=== PATIENT | male | born 1970 | race Two or more races ===

== ENCOUNTER 2024-10-10 18:24 | Inpatient (IN) | payer MEDICAID ==
[~2024-10-10] VITALS: Ht 149.9 cm; Wt 66.9 kg
--- NOTE | 2024-10-10 18:57 | ED.PDOC ---
History of Present Illness HPI Comments 53 y/o M, with a Hx of DM and partial right foot amputation, presents with c/o right foot swelling and redness, with mild discomfort, to distal right foot area for the past 4x days, today. Patient endorses on having a diabetic foot ulcer on the bottom of his right foot for the past 5x months and noticing onset of aforementioned symptoms for the past 4x days. Upon arrival to ED triage, patient was found with a blood glucose of 130. Patient reports no recent injuries in addition to having any numbness, tingling, weakness, fever, or other associated symptoms or modifiers at this time. Chief Complaint: Lower Extremity Time Seen by MD: 18:50 Primary Care Provider: OOA Reviewed Notes: Nurses Notes, Medications, Allergies Allergies: Coded Allergies: Penicillins (Verified Allergy, Unknown, 10/10/24) Information Source: Patient, [facility] Medical Record, Past Medical Record Mode of Arrival: Ambulatory Severity: Moderate Timing: Days Duration: Since onset Prehospital treatment: None Past Medical History PAST MEDICAL HISTORY: DM Surgical History (Other): Hx of partial right foot amputation Family History Family History: Unknown Social History Smoker: Non-Smoker Alcohol: Denies ETOH Use Drugs: Denies Drug Use Lives In: Home Constitutional: denies: chills, diaphoresis, fatigue, fever, malaise, sweats, weakness, others EENTM: denies: blurred vision, double vision, ear bleeding, ear discharge, ear drainage, ear pain, ear ringing, eye pain, eye redness, hearing loss, mouth pain, mouth swelling, nasal discharge, nose bleeding, nose congestion, nose pain, photophobia, tearing, throat pain, throat swelling, voice changes, others Respiratory: denies: cough, hemoptysis, orthopnea, SOB at rest, shortness of breath, SOB with excertion, stridor, wheezing, others Cardiovascular: denies: chest pain, dizzy spells, diaphoresis, Dyspnea on exertion, edema, irregular heart beat, left arm pain, lightheadedness, palpitations, PND, syncope, others Gastrointestinal: denies: abdomen distended, abdominal pain, blood streaked bowels, constipated, diarrhea, dysphagia, difficulty swallowing, hematemesis, melena, nausea, poor appetite, poor fluid intake, rectal bleeding, rectal pain, vomiting, others Genitourinary: denies: burning, dysuria, flank pain, frequency, hematuria, incontinence, penile discharge, penile sore, pain, testicle pain, testicle swelling, urgency, others Neurological: denies: dizziness, fainting, headache, left sided numbness, left sided weakness, numbness, paresthesia, pre-existing deficit, right sided numbne ss, right sided weakness, seizure, speech problems, tingling, tremors, weakness, others Musculoskeletal: reports: others (right foot swelling and redness, with mild discomfort, to distal right foot area); denies: back pain, gout, joint pain, joint swelling, muscle pain, muscle stiffness, neck pain Integumetry: reports: wounds (diabetic ulcer wound); denies: bruises, change in color, change in hair/nails, dryness, laceration, lesions, lumps, rash, others Allergic/Immunocompromised: denies: Difficulty Healing, Frequent Infections, Hives, Itching, others Hematologic/Lymphatic: denies: anemia, blood clots, easy bleeding, easy bruising, swollen glands, others Endocrine: denies: excessive hunger, excessive sweating, excessive thirst, excessive urination, flushing, intolerance to cold, intolerance to heat, unexplained weight gain, unexplained weight loss, others Psychiatric: denies: anxiety, bipolar disorder, depression, hopeless, panic disorder, schizophrenia, sleepless, suicidal, others All Other Systems: Reviewed and Negative Physical Exam General Appearance: Mild Distress, Normal HEENT: Normal ENT Inspection, Pharynx Normal, TMs Normal Neck: Full Range of Motion, Non-Tender, Normal, Normal Inspection Respiratory: Chest Non-Tender, Lungs Clear, No Accessory Muscle Use, No Respiratory Distress, Normal Breath Sounds Cardiovascular: No Edema, No JVD, No Murmur, No Gallop, Normal Peripheral Pulses, Regular Rate/Rhythm Breast Exam: Deferred Gastrointestinal: No Organomegaly, Non Tender, No Pulsatile Mass, Normal Bowel Sounds, Soft Genitalia: Deferred Pelvic: Deferred Rectal: Deferred Extremities: No calf tenderness, Normal range of motion, Swelling, Tender, Other (+ right foot diabetic ulcer, right distal foot severely swollen with erythema and induration) Musculoskeletal : Apperance: Normal Neurologic: Alert, pipeline engineer II-XII nml as Tested, No Motor Deficits, Normal Affect, Normal Mood, No Sensory Deficits Cerebellar Function: Normal Reflexes: Normal Skin: Dry, Normal Color, Other (+ right foot diabetic ulcer, right distal foot severely swollen with erythema and induration) Lymphatic: No Adenopathy Was a procedure done? Was a procedure done?: No Differential Dx Considerations may include: diabetic foot ulcer, cellulitis, dermatitis, osteomyelitis X-Ray, Labs, Meds, VS Vital Signs Date Time Temp Pulse Resp B/P (MAP) Pulse Ox O2 Delivery O2 Flow Rate FiO2 10/10/24 19:30 90 12 99 Room Air* 0 21 10/10/24 19:30 98.2 90 12 121/72 (88) 99 98.2 10/10/24 18:30 98.4 102 18 105/70 (82) 98 Lab Test 10/10/24 19:00 10/10/24 18:36 Range/Units White Blood Count 4.4 4.4-10.8 10^3/uL Red Blood Count 4.08 L 4.5-5.90 10^6/uL Hemoglobin 12.5 L 13.5-17.5 g/dL Hematocrit 37.8 L 41.0-53.0 % Mean Corpuscular Volume 92.6 80.0-100.0 fL Mean Corpuscular Hemoglobin 30.7 28.0-32.0 pg Mean Corpuscular Hemoglobin Concent 33.2 32.0-36.0 g/dL Red Cell Distribution Width 12.7 11.8-14.3 % Platelet Count 400 140-450 10^3/uL Mean Platelet Volume 6.6 L 6.9-10.8 fL Neutrophils (%) (Auto) 62.9 37.0-80.0 % Lymphocytes (%) (Auto) 24.4 10.0-50.0 % Monocytes (%) (Auto) 7.5 0.0-12.0 % Eosinophils (%) (Auto) 4.3 0.0-7.0 % Basophils (%) (Auto) 0.9 0.0-2.0 % Neutrophils # (Auto) 2.8 1.6-8.6 10 ^3/uL Lymphocytes # (Auto) 1.1 0.4-5.4 10 ^3/uL Monocytes # (Auto) 0.3 0-1.3 10 ^3/uL Eosinophils # (Auto) 0.2 0-0.8 10 ^3/uL Basophils # (Auto) 0 0-0.2 10 ^3/uL Nucleated Red Blood Cells 0.1 % Prothrombin Time 12.0 H 9.3-11.8 sec Prothrombin Time INR 1.14 0.9-1.15 Activated Partial Thromboplast Time 29.6 24.5-34.5 SEC Sodium Level 137 136-145 mmol/L Potassium Level 4.1 3.5-5.1 mmol/L Chloride Level 101 98-107 mmol/L Carbon Dioxide Level 31 20-31 mmol/L Anion Gap 5 5-15 Blood Urea Nitrogen 14 9-23 mg/dL Creatinine 0.86 0.700-1.30 mg/dL Glomerular Filtration Rate Calc 104 >90 mL/min BUN/Creatinine Ratio 16.3 10.0-20.0 Serum Glucose 140 H 74-106 mg/dL Lactic Acid Level 1.6 0.4-2.0 mmol/L Calcium Level 10.0 8.7-10.4 mg/dL Total Bilirubin 0.5 0.2-1.0 mg/dL Aspartate Amino Transferase (AST) 27 13-40 U/L Alanine Aminotransferase (ALT) 25 7-40 U/L Alkaline Phosphatase 265 H 46-116 U/L Total Protein 7.9 5.7-8.2 g/dL Albumin 4.0 3.2-4.8 g/dL POC Glucose 129 H 70-106 mg/dl Current Medications Medications (Trade) Dose Ordered Sig/Oliver Route Start Time Stop Time Status Last Admin Sodium Chloride 1,000 ml @ 1,000 mls/hr Q1H ONCE IVB 10/10/24 18:45 10/10/24 19:44 DC 10/10/24 19:32 Vancomycin HCl 200 ml @ 200 mls/hr ONCE ONCE IV 10/10/24 19:00 10/10/24 19:59 DC 10/10/24 19:[address] [address] Ph: [phone] DIAGNOSTIC IMAGING Diagnostic Imaging Report : [id number] Signed PATIENT: JERED GONZALEZ ACCT: [id number] UNIT: [id number] : 1970 LOC: ER ROOM / BED: / AGE / SEX: 53 / M ADM STATUS: REG ER SERVICE [id number] ORDERING PHYSICIAN: ALEXANDRE MURRAY MD PROCEDURE(s): RFOT2 - R FOOT 2 VIEW XRAY REASON: infection ORDER NUMBER(s): [id number], ACCESSION NUMBER(s): [id number] XY R FOOT 2 VIEW XRAY, INDICATION: infection TECHNICAL DATA: Frontal, oblique and lateral views were obtained of the right fo ot. COMPARISON: None Findings/ IMPRESSION: Comminuted fractures involving the base of the 2nd and 3rd proximal phalanges as well as the heads of the 2nd and 3rd metatarsals. There is severe soft tissue edema about these 2 digits. Status post amputation of the 4th digit. ATED BY: ALONZO BERNARDO DO DICTATED DATE/TIME: 10/10/241941 SIGNED BY: ALONZO BERNARDO DO SIGNED DATE/TIME: 10/10/241941 CC: Time of 1ST Reevaluation: 19:20 Reevaluation 1ST: Unchanged Time of 2ND Reevaluation: 19:37 Reevaluation 2ND: Unchanged Consultation: Other (hospitalist for admission, will need orthopedic consultation for possible amputation) Patient Education/Counseling: Diagnosis, Treatment Family Education/Counseling: No Family Present Departure 1 Departure Time of Disposition: 19:33 Impression: Primary Impression: Osteomyelitis of foot, acute Additional Impression: Cellulitis of right foot Disposition: ADMITTED INPATIENT Admit to: Med Surg Condition: Guarded Discharged With: Self Critical Care Note Critical Care Time?: Yes (35 min-critical care time only) Critical care comment: due to the real possibility of patient's condition deteriorating, his care requires my highest attention and readiness to intervene. i assessed the patient, ordered the proper tests and treatments, reassessed him for response, formulated a plan, discussed it with medical personnel, and consultants,. total time include more than 50% face to face contact and does not include any procedures Stability Stability form required: No Heart Score Heart Score: Heart Score Response (Comments) Value History N/A 0 EKG N/A 0 Age N/A 0 Risk Factors N/A 0 Troponin N/A 0 Total 0 I personally scribed for ALEXANDRE MURRAY MD ([email or web address]) on 10/10/24 at 18:57. Electronically submitted by Bacilio Gaines ([email or web address]). I personally scribed for ALEXANDRE MURRAY MD ([email or web address]) on 10/10/24 at 20:11. Electronically submitted by Bacilio Gaines ([email or web address]). ALEXANDRE MURRAY MD Oct 10, 2024 18:57
[2024-10-10 19:30] VITALS: PULSE 90; RESP 12; TEMP 98.2; O2SAT 99
[2024-10-10] MEDS: SODIUM CHLORIDE 0.9% 1,000 ML IVB ONE (19:32)
[2024-10-10 19:35] LABS: Basophils # (auto) 0 10 ^3/uL (0-0.2); Basophils % (auto) 0.9 % (0.0-2.0); Eosinophils # (auto) 0.2 10 ^3/uL (0-0.8); Eosinophils % (auto) 4.3 % (0.0-7.0); Hematocrit 37.8 % (41.0-53.0); Hemoglobin 12.5 g/dL (13.5-17.5); Lymphocytes # (auto) 1.1 10 ^3/uL (0.4-5.4); Lymphocytes % (auto) 24.4 % (10.0-50.0); Mean Corpuscular Hemoglobin 30.7 pg (28.0-32.0); Mean Corpuscular Hgb Conc. 33.2 g/dL (32.0-36.0); Mean Corpuscular Volume 92.6 fL (80.0-100.0); Monocytes # (auto) 0.3 10 ^3/uL (0-1.3); Monocytes % (auto) 7.5 % (0.0-12.0); Neutrophils # (auto) 2.8 10 ^3/uL (1.6-8.6); Neutrophils % (auto) 62.9 % (37.0-80.0); Nucleated Red Blood Cells % 0.1 %; Platelet Count (auto) 400 10^3/uL (140-450); Red Blood Cells 4.08 10^6/uL (4.5-5.90); Red Cell Distribution Width 12.7 % (11.8-14.3); White Blood Cell 4.4 10^3/uL (4.4-10.8)
[2024-10-10] MEDS: VANCOMYCIN 1GM/200ML PREMIX 200 ML IV ONE (19:41)
--- NOTE | 2024-10-10 19:45 | [facility] ---
XY R FOOT 2 VIEW XRAY, INDICATION: infection TECHNICAL DATA: Frontal, oblique and lateral views were obtained of the right foot. COMPARISON: None Findings/ IMPRESSION: Comminuted fractures involving the base of the 2nd and 3rd proximal phalanges as well as the heads of the 2nd and 3rd metatarsals. There is severe soft tissue edema about these 2 digits. Status post amp utation of the 4th digit.
[2024-10-10 19:56] LABS: Alanine Aminotransferase 25 U/L (7-40); Alkaline Phosphatase 265 U/L (46-116); Anion Gap 5 (5-15); Aspartate Aminotransferase 27 U/L (13-40); BUN/Creatinine Ratio 16.3 (10.0-20.0); Bilirubin, Total 0.5 mg/dL (0.2-1.0); Blood Urea Nitrogen 14 mg/dL (9-23); Carbon Dioxide 31 mmol/L (20-31); Chloride 101 mmol/L (98-107); Glucose 140 mg/dL (74-106); Potassium 4.1 mmol/L (3.5-5.1); Sodium 137 mmol/L (136-145); Total Protein 7.9 g/dL (5.7-8.2)
[2024-10-10 19:57] LABS: INR 1.14 (0.9-1.15); Partial Thromboplastin Time 29.6 SEC (24.5-34.5)
[2024-10-10] MEDS: DOXYCYCLINE 100MG/250ML 250 ML IV ONE (21:18)
[2024-10-10] MEDS ORDERED: NITROGLYCERIN 0.4 MG SL TAB SL PRN (21:30)
[2024-10-10] MEDS ORDERED: ACETAMINOPHEN 325 MG TAB PO PRN (21:30)
[2024-10-10] MEDS ORDERED: HYDROcodone-ACET 5/325MG TAB PO PRN (21:30)
[2024-10-10] MEDS ORDERED: MORPHINE SULFATE INJ 2 MG/ml SYRG IV PRN ×2 (21:30)
[2024-10-10] MEDS ORDERED: ONDANSETRON HCL 4 MG/2 ML VIAL IV PRN (21:30)
[2024-10-10] MEDS ORDERED: DOCUSATE SOD 100 MG CAP PO PRN (21:30)
--- NOTE | 2024-10-10 21:40 | DVHHPRES ---
History of Present Illness Resident Creating Document: SACHIN CABRERA RESIDENT History of Present Illness Mr. Jered Cerda, a 53-year-old male with a history of diabetes mellitus, recurrent diabetic foot ulcer, Charcot arthropathy and partial right foot amputation presented with swelling, redness, and mild discomfort in the distal right foot for the past four days. He has had a diabetic foot ulcer on the bottom of his right foot for five months. Upon arrival, his blood glucose was 130. He denied recent injuries, numbness, tingling, weakness, fever, or other symptoms. Examination revealed an edematous foot with an open ulceration. Imaging showed comminuted fractures and severe soft tissue edema. He was diag nosed with acute osteomyelitis and cellulitis of the right foot. Musculoskeletal: Other (recurrent diabetic wound, previous amputation. ) Endocrine: Diabetes Past Surgical History: Other (partial right foot amputation) Family History: None Family History Noncontributory Smoke: No ALCOHOL: none Drugs: None Lives: with Family Domestic Violence: Neg Review of Systems Constitutional: Yes: Malaise Eyes: No: Pain, Vision change, Conjunctivae inflammation, Eyelid inflammation, Other, Redness ENT: No: Ear pain, Ear discharge, Nose pain, Nose discharge, Nose congestion, Mouth pain, Mouth swelling, Throat pain, Throat swelling, Other Respiratory: No: Cough, Dry, Shortness of breath, SOB with excertion, Wheezing, Hemoptysis, Pleuritic Pain, Sputum, Wheezing, Other Cardiovascular: No: Chest Pain, Palpitations, Orthopnea, Paroxysmal Noc. Dyspnea, Edema, Lt Headedness, Other Gastrointestinal: No: Nausea, Vomiting, Abdominal Pain, Diarrhea, Constipation, Melena, Hematochezia, Other Genitourinary: No Dysuria, No Frequency, No Incontinence, No Hematuria, No Retention, No Other Musculoskeletal: foot pain (Heparin) Skin: Rash, Lesions Neurological: No: Weakness, Numbness, Incoordination, Change in speech, Confus ion, Seizures, Other Allergies: Coded Allergies: Penicillins (Verified Allergy, Unknown, 10/10/24) Medications Current Medications Medications Dose Ordered Sig/Oliver Route Start Time Stop Time Status Last Admin Dose Admin Acetaminophen/ Hydrocodone Bitart 1 tab Q4HP PRN PO 10/10/24 21:30 Ondansetron HCl 4 mg Q4HP PRN IV 10/10/24 21:30 Docusate Sodium 100 mg BIDPRN PRN PO 10/10/24 21:30 Acetaminophen 650 mg Q6HP PRN PO 10/10/24 21:30 Morphine Sulfate 2 mg Q4HPRN PRN IV 10/10/24 21:30 Nitroglycerin 0.4 mg Q5MINP PRN SL 10/10/24 21:30 Morphine Sulfate 2 mg Q30M PRN IV 10/10/24 21:30 Exam Vital Signs Vital Signs Date Time Temp Pulse Resp B/P (MAP) Pulse Ox O2 Delivery O2 Flow Rate FiO2 10/10/24 19:30 90 12 99 Room Air* 0 21 10/10/24 19:30 98.2 121/72 (88) 98.2 Exam Patient was on in the hallway My plan was to do a detailed physical exam at bedside. Before I could perform that patient left against AMA. Could not complete my full physical exam. Visually patient was not in acute distress. Wound open, foul smelling with some discharge visible. Labs/Xrays Labs Test 10/10/24 19:00 10/10/24 18:36 Range/Units White Blood Count 4.4 4.4-10.8 10^3/uL Red Blood Count 4.08 L 4.5-5.90 10^6/uL Hemoglobin 12.5 L 13.5-17.5 g/dL Hematocrit 37.8 L 41.0-53.0 % Mean Corpuscular Volume 92.6 80.0-100.0 fL Mean Corpuscular Hemoglobin 30.7 28.0-32.0 pg Mean Corpuscular Hemoglobin Concent 33.2 32.0-36.0 g/dL Red Cell Distribution Width 12.7 11.8-14.3 % Platelet Count 400 140-450 10^3/uL Mean Platelet Volume 6.6 L 6.9-10.8 fL Neutrophils (%) (Auto) 62.9 37.0-80.0 % Lymphocytes (%) (Auto) 24.4 10.0-50.0 % Monocytes (%) (Auto) 7.5 0.0-12.0 % Eosinophils (%) (Auto) 4.3 0.0-7.0 % Basophils (%) (Auto) 0.9 0.0-2.0 % Neutrophils # (Auto) 2.8 1.6-8.6 10 ^3/uL Lymphocytes # (Auto) 1.1 0.4-5.4 10 ^3/uL Monocytes # (Auto) 0.3 0-1.3 10 ^3/uL Eosinophils # (Auto) 0.2 0-0.8 10 ^3/uL Basophils # (Auto) 0 0-0.2 10 ^3/uL Nucleated Red Blood Cells 0.1 % Prothrombin Time 12.0 H 9.3-11.8 sec Prothrombin Time INR 1.14 0.9-1.15 Activated Partial Thromboplast Time 29.6 24.5-34.5 SEC Sodium Level 137 136-145 mmol/L Potassium Level 4.1 3.5-5.1 mmol/L Chloride Level 101 98-107 mmol/L Carbon Dioxide Level 31 20-31 mmol/L Anion Gap 5 5-15 Blood Urea Nitrogen 14 9-23 mg/dL Creatinine 0.86 0.700-1.30 mg/dL Glomerular Filtration Rate Calc 104 >90 mL/min BUN/Creatinine Ratio 16.3 10.0-20.0 Serum Glucose 140 H 74-106 mg/dL Lactic Acid Level 1.6 0.4-2.0 mmol/L Calcium Level 10.0 8.7-10.4 mg/dL Total Bilirubin 0.5 0.2-1.0 mg/dL Aspartate Amino Transferase (AST) 27 13-40 U/L Alanine Aminotransferase (ALT) 25 7-40 U/L Alkaline Phosphatase 265 H 46-116 U/L Total Protein 7.9 5.7-8.2 g/dL Albumin 4.0 3.2-4.8 g/dL POC Glucose 129 H 70-106 mg/dl [place] [id number] Ph: [phone] DIAGNOSTIC IMAGING Diagnostic Imaging Report : [id number] Signed PATIENT: JERED GONZALEZ ACCT: [id number] UNIT: [id number] : 1970 LOC: ER ROOM / BED: / AGE / SEX: 53 / M ADM STATUS: REG ER SERVICE [id number] ORDERING PHYSICIAN: ALEXANDRE MURRAY MD PROCEDURE(s): RFOT2 - R FOOT 2 VIEW XRAY REASON: infection ORDER NUMBER(s): [id number], ACCESSION NUMBER(s): [id number] XY R FOOT 2 VIEW XRAY, INDICATION: infection TECHNICAL DATA: Frontal, oblique and lateral views were obtained of the right foot. COMPARISON: None Findings/ IMPRESSION: Comminuted fractures involving the base of the 2nd and 3rd proximal phalanges as well as the heads of the 2nd and 3rd metatarsals. There is severe soft tissue edema about these 2 digits. Status post amputation of the 4th digit. ATED BY: ALONZO BERNARDO DO DICTATED DATE/TIME: 10/10/241941 SIGNED BY: ALONZO BERNARDO DO SIGNED DATE/TIME: 10/10/241941 CC: Assessment/Plan Assessment/Plan Assesment: 53-year-old male with diabetes and a partial right foot amputation presented with a four-day history of swelling, redness, and mild discomfort in his right foot, which has a diabetic ulcer, and was diagnosed with acute osteomyelitis and cellulitis. Plan: #1 Likely acute right foot osteomyelitis: x-ray reveals severe soft tissue edema, open wound with foul smell, pain controlled with as needed morphine and Doyline. Pending wound culture, blood culture, wound care and podiatry consult. Continue IV vancomycin as per pharmacy titration. #2 Recurrent diabetic foot ulcer: Recurrent history, due to poor hygiene and recurrent trauma. #3 Normochromic, normocytic anemia: No known baseline hemoglobin 12.5 could be anemia of chronic disease. Needs further workup With iron panel and ferritin. #4 right foot fractures: Comminuted fracture of base of 2nd and 3rd proximal ph alanges As well as heads of 2nd and 3rd metatarsals. Could be sequelae charcoal to arthropathy. #5 right foot skin and soft tissue infection/cellulitis: overlying skin and soft tissue infection around the wound , possible subcutaneous spread of infection. likely need local debridement For source control with IV antibiotics. #6 uncontrolled diabetes mellitus: HbA1c pending. [place] blood pressure target in-hospital 140-180 postprandial. diabetic education. #7 history of partial right foot amputation #8 possible diabetic neuropathy bilateral lower limb. #9 status post foot right foot digit for amputation. #10 Overweight with BMI of 29.8 #11 medical noncompliance PUD prophylaxis: protonix 40mg oral daily. DVT prophylaxis: SCD/brisk movement. We will avoid anticoagulation as patient might need surgery in the morning. Diet: NPO for possible surgical management. continue LR 50 cc/hour. Barriers to discharge: Medical diagnosis and management in progress. Patient lives with self . Independent for ADL. PT and SW consult as needed for further. PCP: [facility] Specialist Relevant To Admission: NA Case discussed with Dr. Hugo. Code Status: Full Code. Discussion needed total 21 minutes bedside. Plan discussed with: Patient, Other (Primary team, RN. ) My Orders Orders - SACHIN CABRERA RESIDENT Procedure Category Date Status Time Admit ADMIT 10/10/24 Transmitted 21:17 Code Status CODE 10/10/24 Transmitted 21:17 Oxygen Per Hour RT 10/10/24 Transmitted 21:17 Hydrocodone-Acet PHA 10/10/24 In Process 5/325mg Tab (Doyline 21:30 Ondansetron Hcl PHA 10/10/24 In Process (Zofran) 21:30 Docusate Sodium PHA 10/10/24 In Process Capsule (Colace 21:30 Complete Blood Count LAB 10/11/24 Verified 04:00 Comprehensive LAB 10/11/24 Verified Metabolic Panel 04:00 Npo (Nothing By DIET 10/11/24 Transmitted Mouth) Diet Breakfast Condition: Fair DIANA 10/10/24 In Process 21:17 Acetaminophen Tablet PHA 10/10/24 In Process (Tylenol Tablet) 21:30 Bedrest With Bathroom DIANA 10/10/24 In Process Privileg 21:17 Bedside Commode DIANA 10/10/24 In Process 21:17 Morphine Sulfate PHA 10/10/24 In Process Injection 21:30 Sequential DIANA 10/10/24 In Process Compression Device Nitroglycerin PHA 10/10/24 In Process Sublingual (Ntrostat 21:30 Morphine Sulfate PHA 10/10/24 In Process Injection 21:30 Oxygen By Nasal RT 10/10/24 Transmitted Cannula 21:17 Stat Ekg For Chest DIANA 10/10/24 In Process Pain 21:17 Notify Md Of Changes DIANA 10/10/24 In Process From Base 21:17 Emergency Dysrhythmia DIANA 10/10/24 In Process Protocol 21:17 Rhythm Strips Once DIANA 10/10/24 In Process Every Shift 21:17 * Wound Consult CONS 10/10/24 Transmitted Podiatry Consult CONS 10/10/24 Transmitted 21:23 Date of Service: Oct 10, 2024 Billing Provider: AYO HUGO MD Common Visit Codes: 83332-SOSTCAE INP/OBS CARE (HIGH) SACHIN CABRERA RESIDENT Oct 10, 2024 21:40 AYO HUGO MD Oct 11, 2024 17:53
[2024-10-10 22:28] VITALS: BP 121/72; PULSE 90; RESP 14; O2SAT 99
--- NOTE | 2024-10-11 02:18 | DVHDSRES ---
Discharge Summary Date of Admission Resident Creating Document: SACHIN CABRERA RESIDENT Oct 10, 2024 at 21:17 Date of Discharge: Oct 10, 2024 Admitting Diagnosis Right foot acute osteomyelitis and cellulitis. Wounds: open wound in the right foot Labs/Diagnostic Data: Laboratory Results Test 10/10/24 19:00 10/10/24 18:36 White Blood Count 4.4 10^3/uL (4.4-10.8) Red Blood Count 4.08 10^6/uL (4.5-5.90) Hemoglobin 12.5 g/dL (13.5-17.5) Hematocrit 37.8 % (41.0-53.0) Mean Corpuscular Volume 92.6 fL (80.0-100.0) Mean Corpuscular Hemoglobin 30.7 pg (28.0-32.0) Mean Corpuscular Hemoglobin Concent 33.2 g/dL (32.0-36.0) Red Cell Distribution Width 12.7 % (11.8-14.3) Platelet Count 400 10^3/uL (140-450) Mean Platelet Volume 6.6 fL (6.9-10.8) Neutrophils (%) (Auto) 62.9 % (37.0-80.0) Lymphocytes (%) (Auto) 24.4 % (10.0-50.0) Monocytes (%) (Auto) 7.5 % (0.0-12.0) Eosinophils (%) (Auto) 4.3 % (0.0-7.0) Basophils (%) (Auto) 0.9 % (0.0-2.0) Neutrophils # (Auto) 2.8 10 ^3/uL (1.6-8.6) Lymphocytes # (Auto) 1.1 10 ^3/uL (0.4-5.4) Monocytes # (Auto) 0.3 10 ^3/uL (0-1.3) Eosinophils # (Auto) 0.2 10 ^3/uL (0-0.8) Basophils # (Auto) 0 10 ^3/uL (0-0.2) Nucleated Red Blood Cells 0.1 % Prothrombin Time 12.0 sec (9.3-11.8) Prothrombin Time INR 1.14 (0.9-1.15) Activated Partial Thromboplast Time 29.6 SEC (24.5-34.5) Sodium Level 137 mmol/L (136-145) Potassium Level 4.1 mmol/L (3.5-5.1) Chloride Level 101 mmol/L (98-107) Carbon Dioxide Level 31 mmol/L (20-31) Anion Gap 5 (5-15) Blood Urea Nitrogen 14 mg/dL (9-23) Creatinine 0.86 mg/dL (0.700-1.30) Glomerular Filtration Rate Calc 104 mL/min (>90) BUN/Creatinine Ratio 16.3 (10.0-20.0) Serum Glucose 140 mg/dL (74-106) Lactic Acid Level 1.6 mmol/L (0.4-2.0) Calcium Level 10.0 mg/dL (8.7-10.4) Total Bilirubin 0.5 mg/dL (0.2-1.0) Aspartate Amino Transferase (AST) 27 U/L (13-40) Alanine Aminotransferase (ALT) 25 U/L (7-40) Alkaline Phosphatase 265 U/L (46-116) Total Protein 7.9 g/dL (5.7-8.2) Albumin 4.0 g/dL (3.2-4.8) POC Glucose 129 mg/dl (70-106) Other Laboratory Tests 10/10/24 19:00 Brief Hx & Hospital Course: Hospitalization Summary: A 53-year-old male with diabetes and a partial right foot amputation presented with a four-day history of swelling, redness, and mild discomfort in his right foot, which has a diabetic ulcer, and was diagnosed with acute osteomyelitis and cellulitis. patient was getting further workup and IV antibiotics. Awaiting for culture results and podiatry consult. Detailed physical examination yet to be performed while patient was in the hallway. Patient decided to leave [facility] , understanding the risks signing the documents. all red flags discussed with plan for reaching out to health care facility as soon as possible. Medical conditions treated in hospital: #1 Likely acute right foot osteomyelitis #2 Recurrent diabetic foot ulcer #3 Normochromic, normocytic anemia #4 right foot fractures, Likely Charcot arthropathy. #5 right foot skin and soft tissue infection/cellulitis #6 history of partial right foot amputation #7 uncontrolled diabetes mellitus #8 possible diabetic neuropathy bilateral lower limb #9 status post foot right foot digit for amputation #10 Overweight with BMI of 29.8 #11 medical noncompliance Physical Examination (PE): Patient left before full physical examination can be done. Case discussed with Dr. Hugo. Follow up: Patient left AMA, signing the document and understanding the risks and possible limb threatening outcomes. As per patient, he wants to come back to ER in a day but has other important social obligations. Discharge planning needed 41 minutes of detailed discussion. The patient and caregiver team agreed to the plan. Consults/Reason for consult Podiatry Wound Care Operations or Procedures [place] [id number] Ph: [phone] DIAGNOSTIC IMAGING Diagnostic Imaging Report : [id number] Signed PATIENT: JERED GONZALEZ ACCT: [id number] UNIT: [id number] : 1970 LOC: ER ROOM / BED: / AGE / SEX: 53 / M ADM STATUS: REG ER SERVICE 47 ORDERING PHYSICIAN: ALEXANDRE MURRAY MD PROCEDURE(s): RFOT2 - R FOOT 2 VIEW XRAY REASON: infection ORDER NUMBER(s): [id number], ACCESSION NUMBER(s): [id number] R FOOT 2 VIEW XRAY, INDICATION: infection TECHNICAL DATA: Frontal, oblique and lateral views were obtained of the right foot. COMPARISON: None Findings/ IMPRESSION: Comminuted fractures involving the base of the 2nd and 3rd proximal phalanges as well as the heads of the 2nd and 3rd metatarsals. There is severe soft tissue edema about these 2 digits. Status post amputation of the 4th digit. ATED BY: ALONZO BERNARDO DO DICTATED DATE/TIME: 10/10/241941 SIGNED BY: ALONZO BERNARDO DO SIGNED DATE/TIME: 10/10/241941 CC: Condition at Discharge: Undetermined Final Diagnosis/Problems List #1 Likely acute right foot osteomyelitis #2 Recurrent diabetic foot ulcer #3 Normochromic, normocytic anemia #4 right foot fractures, Likely Charcot arthropathy. 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 Keep the area dry and clean. Keep the wound away from any contamination.) Follow Up/Referral: Return to the ER as soon as possible Needs close care for the foot wound. Medications: As per MAR Highly suggested IV antibiotics Discharge Statement: "Patient was advised to return to the ER or call 911 if any headaches, dizziness, shortness of breath, chest pain, abdominal pain, bleeding, fevers, or worsening of medical condition. Patient was counseled about treatment plan, medications, possible side effects, patientverbalized understanding. All questions were answered to the best of my ability. This discharge took greater then 30 minutes in planning, reviewing documentation, counseling the patient, and discussing with other team members." ASSESSMENT ASSESSMENT Assessment Date of Service: Oct 10, 2024 Billing Provider: AYO HUGO MD Common Visit Codes: 70668-QCH/OBS DISCH DAY <30MIN SACHIN CABRERA RESIDENT Oct 11, 2024 02:18 AYO HUGO MD Oct 11, 2024 17:54
== END 2024-10-10 22:43 | disposition left against medical advice (07) | DRG 344 ==
LOC: ER 18:24 → OVERFLOW 21:17
PROVIDERS: ATTEND Emergency Medicine
DX: E11.69 Type 2 diabetes mellitus with other specified complication (principal); M86.171 Other acute osteomyelitis, right ankle and foot; E11.610 Type 2 diabetes mellitus with diabetic neuropathic arthropathy; E11.621 Type 2 diabetes mellitus with foot ulcer; L03.115 Cellulitis of right lower limb; L97.519 Non-pressure chronic ulcer of other part of right foot with unspecified severity; D64.9 Anemia, unspecified; E11.40 Type 2 diabetes mellitus with diabetic neuropathy, unspecified; Z53.29 Procedure and treatment not carried out because of patient's decision for other reasons; E66.3 Overweight; Z79.4 Long term (current) use of insulin; Z91.199 Patient's noncompliance with other medical treatment and regimen due to unspecified reason; Z68.29 Body mass index [BMI] 29.0-29.9, adult; Z79.899 Other long term (current) drug therapy
CPT/HCPCS: 36415; 73620; 80053; 82962; 83605; 85025; 85610; 85730; 87040; G0378; J3490